=== PATIENT | female | born 1990 | race Hispanic/Latino ===

== ENCOUNTER 2017-09-13 16:52 | Inpatient (IN) | payer BC ==
[2017-09-13 17:18] VITALS: BMI 33.3
[2017-09-13 17:44] LABS: #Basophils 0.1 thou/uL (0.0-0.2); #Eosinphils 0.4 thou/uL (0.0-0.7); #Lymphocytes 2.4 thou/uL (1.20-3.40); #Monocytes 0.5 thou/uL (0.11-0.59); #Neutrophils 5.5 thou/uL (1.40-6.50); %Basophils 0.9 % (0.0-1.0); %Eosinophils 4.1 % (0.0-10.0); %Lymphocytes 27.2 % (21.0-51.0); %Monocytes 5.9 % (0.0-10.0); %Neutrophils 61.9 % (42.0-75.0); Hemoglobin 14.5 g/dL (12.0-16.0); Mean Corpuscular HGB CONC 33.4 g/dL (32.0-36.0); Mean Corpuscular Hemoglobin 30.6 pg (27.0-31.0); Mean Corpuscular Volume 91.7 fl (81.0-99.0); Mean Platelet Volume 7.6 fL (7.4-10.4); Platelet Count 305 thou/uL (130-400); RBC Distribution Width 11.9 % (11.5-14.5); Red Blood Cell (RBC) Count 4.72 mill/uL (4.20-5.40); White Blood Cell (WBC) Count 8.8 thou/uL (4.8-10.8)
[2017-09-13] MEDS ORDERED: Sodium Chloride 0.9% 1,000 ML IV SCH (17:45)
[2017-09-13] MEDS: Sodium Chloride 0.9% 1,000 ML IV SCH (17:50)
[2017-09-13 17:52] LABS: Prothrombin Time 13.1 SEC (12.0-14.7)
[2017-09-13 18:38] LABS: ALT (SGPT) 383 U/L (8-55); AST (SGOT) 195 U/L (5-34); Albumin 4.6 g/dL (3.5-5.0); Alkaline Phosphatase 457 U/L (40-150); Anion Gap 14 mmol/L (10-20); BUN (Urea Nitrogen) 16 mg/dL (7.0-18.7); Bilirubin, Total 1.3 mg/dL (0.2-1.2); Calc. Creatinine Clearance 147 mL/min (70-130); Calcium 9.6 mg/dL (7.8-10.44); Carbon Dioxide 24 mmol/L (22-29); Chloride 106 mmol/L (98-107); Estimated GFR-MDRD Greater than 90; Globulin 3.6 g/dL (2.4-3.5); Glucose 93 mg/dL (70-105); Lipase 36 U/L (8-78); Potassium 3.8 mmol/L (3.5-5.1); Protein, Total 8.2 g/dL (6.0-8.3); Sodium 140 mmol/L (136-145)
[2017-09-13] MEDS: Ondansetron HCl/PF 4 MG/2 ML Vial IVP PRN (18:38)
--- NOTE | 2017-09-13 19:29 | PDOC.FPRHP ---
- History of Present Illness Chief Complaint: Epigastric pain History of Present Illness: 26 yo obese female presents with a 2 wk history of abdominal pain, reflux, and persistent nausea and vomiting. Patient reports she was initially evaluated at an urgent care 2 wks ago for what she thought was acid reflux. She was prescribed OTC medication which did not improve symptoms. Patient's switched to PPI, but still had persistently severe symptoms. She was tired of hurting so she found Dr. Scruggs, Director Business Systems, on the internet. She made an appointment with him on Sunday. At that time it was still presumed to be related to reflux, so the PPI dose was increased and labs were ordered. Labs were noted to be abnormal, so she was sent by Dr. Scruggs to have RUQ ultrasound which was positive for choledocholethiasis. Therefore, she was directly admitted to hospital for treatment and ERCP to be done by Dr. Scruggs in the AM. Patient states she has lost approximately 18 lbs over the last 2 wks. Overall symptoms include nausea, vomiting, reflux, and abdominal pain. Pain 10/10 and located primarily in the epigastric region. Pain is nonradiating. She is not able to really even tolerate clear liquids. Nothing has improved or been able to treat symptoms. Patient reports she is a full code. ED Course: Patient was directly admitted. No ER course for this admission. - Allergies/Adverse Reactions Allergies Allergy/AdvReac Type Severity Reaction Status Date / Time sulfamethoxazole Allergy Mild Rash Verified 12/23/12 11:11 [From Bactrim] trimethoprim [From Bactrim] Allergy Mild Rash Verified 12/23/12 11:11 - Home Medications Medication Instructions Recorded Confirmed Type Ondansetron [Zofran ODT] 4 mg PO Q4HR PRN 09/13/17 09/13/17 History Pantoprazole Sodium [Protonix] 20 mg PO DAILY 09/13/17 09/13/17 History - History PMHx: GERD, hx of A2GDM PSHx: Essure (06/2017) FHx: Mother: Vertigo. Father: HTN, DM. Son: Heart murmur Social: . 2 children. Employeed at [employer]. No tobacco, alcohol, and drug use. - Review of Systems General: reports: weight/appetite/sleep changes (Decreased appetite. Weight loss approximately 18 pounds per patient over last 2 weeks). denies: fever/ chills, night sweats, fatigue ENT: denies: nasal congestion, rhinorrhea Respiratory: denies: cough, congestion, shortness of breath Cardiovascular: denies: chest pain, palpitation, edema Gastrointestinal: reports: nausea, vomiting (After eating and drinking), abdominal pain (Mid abdominal region). denies: diarrhea, constipation Genitourinary: denies: incontinence, dysuria, polyuria Skin: denies: rashes, lesions, jaundice, itching Musculoskeletal: denies: pain, stiffness Neurological: denies: syncope, weakness - Vital signs BP: 121/70 HR: 65 RR: 18 Tmax: 98.6 Pox: 98% on RA Wt: 82.6 kg - Physical Exam Constitutional: NAD, awake, alert and oriented, well developed HEENT: normocephalic and atraumatic, EOMI Neck: supple Heart: RRR, no murmurs/rubs/gallops, pulses present Lungs: CTAB, no respiratory distress, no wheezing Abdomen: soft, bowel sounds present -Abdomen: Mildly tender to palpation in epigastric region Musculoskeletal: normal structure Neurological: no focal deficit Skin: no rash/lesions, capillary refill <2 seconds Heme/Lymphatic: no purpura, no petechia Psychiatric: normal mood and affect, good judgment and insight FMR H&P: Results - Labs Result Diagrams: 09/13/17 17:35 09/13/17 17:35 Lab results: WBC 8.8 thou/uL (4.8-10.8) 09/13/17 17:35 Hgb 14.5 g/dL (12.0-16.0) 09/13/17 17:35 Hct 43.3 % (36.0-47.0) 09/13/17 17:35 MCV 91.7 fl (81.0-99.0) 09/13/17 17:35 Plt Count 305 thou/uL (130-400) 09/13/17 17:35 Neutrophils % 61.9 % (42.0-75.0) 09/13/17 17:35 Sodium 140 mmol/L (136-145) 09/13/17 17:35 Potassium 3.8 mmol/L (3.5-5.1) 09/13/17 17:35 Chloride 106 mmol/L (98-107) 09/13/17 17:35 Carbon Dioxide 24 mmol/L (22-29) 09/13/17 17:35 BUN 16 mg/dL (7.0-18.7) 09/13/17 17:35 Creatinine 0.75 mg/dL (0.6-1.1) 09/13/17 17:35 Glucose 93 mg/dL (70-105) 09/13/17 17:35 Calcium 9.6 mg/dL (7.8-10.44) 09/13/17 17:35 Total Bilirubin 1.3 mg/dL (0.2-1.2) H 09/13/17 17:35 AST 195 U/L (5-34) H 09/13/17 17:35 ALT 383 U/L (8-55) H 09/13/17 17:35 Alkaline Phosphatase 457 U/L (40-150) H 09/13/17 17:35 Serum Total Protein 8.2 g/dL (6.0-8.3) 09/13/17 17:35 Albumin 4.6 g/dL (3.5-5.0) 09/13/17 17:35 Lipase 36 U/L (8-78) 09/13/17 17:35 Additional comment: RUQ u/s: cholelithiasis with dilated CBD FMR H&P: A/P - Problem List (1) Choledocholithiasis Current Visit: Yes Status: Acute Code(s): K80.50 - CALCULUS OF BILE DUCT W/ O CHOLANGITIS OR CHOLECYST W/O OBST - Plan 1. Acute Choledocholithiasis - Patient admitted to medical floor - Plan for ERCP by Dr. Scruggs tomorrow - Patient made NPO at midnight; clears until that time - AST 195, ALT 383, AP 457, Tbili 1.3; will trend - IVF @ 125 ml/hr - Zofran for nausea - Morphine for pain control - AM CMP - Coag studies wnl, CBC wnl - Afebrile, VSS - No indication for antibiotics at this time 2. Obesity - [employer] on diet and exercise - BMI 33.3 3. Hx of A2GDM - Monitor BG while inpatient; patient never evaluated for DM after - BG on admission 93 FMR H&P: Upper Level - Plan Date/Time: 09/13/171922 I, Rex Braga MD, have evaluated this patient and agree with findings/plan as outlined by product managent intern resident. Pertinent changes/additions are listed here. 26 yo female pmhx of obesity and insulin resistance presents with a 2 wk history of 10/10, non-radiating, burning, epigastric pain and persistent nausea and vomiting. Associated with 18 lb weight loss over that time period. Unable to tolerate anything by mouth including clear liquids. Reports initially being treated for GERD by [facility] without relief of symptoms. Pt made appt with Dr. Scruggs who initially increased her PPI but then her labs came back abnl. RUQ ultrasound was positive for choledocholethiasis, and pt was subsequently direct admitted for treatment with plan for ERCP to be done tmrw AM by Dr. Scruggs. PE: Gen: obese female, NAD, AAOx3, appeared hydrated CV: RRR, no m/g/r Lungs: CTAB, non-labored GI: soft, non-tender, no guarding, rebound, or rigidity Ext: no c/c/e A/P: 1) Acute choledocholithiasis: direct admit to medical; clear liquids until midnight then NPO with plan for ERCP with GI in AM. Pt afebrile, VSS, abx not indicated at this time. Elevated liver enzymes, will trend. Continue maintenance IVF. Prn morphine for pain relief. 2) Obesity: recommend lifestyle changes 3) H/o gDM: will monitor glucoses while inpt Attending Addendum - Attending Addendum Date/Time: 09/13/171937 I personally evaluated the patient and discussed the management with Dr. Young and Dr. Braga I agree with the History, Examination, Assessment and Plan documented above with any addition or exceptions noted below. 26 yo healthy female with history of A2 GDM with previous pregnancies and BMI of 33 admitted to hospital for choledocholethiasis. Patient has been seen and evaluated by Dr. Scruggs. Plans to perform ERCP in AM. Patient reports symptoms over the past 2 wks. Labs consistent with disease state. Denies fever/chills. VS reviewed. Labs reviewed. Imaging reviewed. Exam benign at present. A/P: Admit. IVFs. Pain meds and antiemetics. NPO. ERCP in AM. Trend labs. Monitor vitals. Ramoniat
[2017-09-13] MEDS ORDERED: Promethazine HCl 25 MG/ML VIAL IM SCH (21:45)
[2017-09-14] MEDS: Sodium Chloride 0.9% 1,000 ML IV SCH ×4 (03:22→21:56)
[2017-09-14 05:56] LABS: ALT (SGPT) 305 U/L (8-55); AST (SGOT) 97 U/L (5-34); Albumin 4.4 g/dL (3.5-5.0); Alkaline Phosphatase 384 U/L (40-150); Anion Gap 13 mmol/L (10-20); BUN (Urea Nitrogen) 8 mg/dL (7.0-18.7); Bilirubin, Total 0.6 mg/dL (0.2-1.2); Calc. Creatinine Clearance 167 mL/min (70-130); Calcium 8.8 mg/dL (7.8-10.44); Carbon Dioxide 20 mmol/L (22-29); Chloride 105 mmol/L (98-107); Estimated GFR-MDRD Greater than 90; Globulin 3.6 g/dL (2.4-3.5); Glucose 128 mg/dL (70-105); Sodium 134 mmol/L (136-145)
[2017-09-14] MEDS: Ondansetron HCl/PF 4 MG/2 ML Vial IVP PRN ×2 (08:47→21:53)
[2017-09-14] MEDS ORDERED: Promethazine HCl 25 MG/ML VIAL IM/IV PRN (09:09)
--- NOTE | 2017-09-14 09:13 | PDOC.FM ---
- Subjective Subjective: Complaining of abdominal pain, n/v this am. Says she had multiple episodes of vomitus last night that was dark green. - Objective MAR Reviewed: Yes Vital Signs & Weight: Vital Signs (12 hours) Temp Pulse Resp BP Pulse Ox 09/14/17 08:00 98.6 F 68 16 135/78 99 09/14/17 04:00 98.2 F 78 16 132/86 98 09/14/17 00:00 98.9 F 69 16 138/84 98 Weight Weight 82.667 kg I&O: 09/13/17 09/14/17 09/15/17 06:59 06:59 06:59 Intake Total 1740 Output Total 500 Balance 1240 Result Diagrams: 09/13/17 17:35 09/14/17 04:19 <Lindsay Gamboa - Last Filed: 09/14/17 11:35> - Objective Vital Signs & Weight: Vital Signs (12 hours) Temp Pulse Resp BP Pulse Ox 09/14/17 11:53 98.7 F 66 16 110/68 96 Weight Admit Weight 82.667 kg Weight 82.667 kg I&O: 09/13/17 09/14/17 09/15/17 06:59 06:59 06:59 Intake Total 1740 Output Total 500 Balance 1240 Result Diagrams: 09/13/17 17:35 09/14/17 04:19 <Estrella Morton - Last Filed: 09/14/17 20:18> Phys Exam - Physical Examination Constitutional: NAD HEENT: PERRLA, moist MMs Respiratory: no wheezing, no rales, clear to auscultation bilateral Cardiovascular: RRR, no significant murmur Gastrointestinal: soft tender to palpation; hypoactive bowel sounds Neurological: non-focal Psychiatric: normal affect, A&O x 3 Skin: no rash <Lindsay Gamboa - Last Filed: 09/14/17 11:35> Dx/Plan (1) Choledocholithiasis Code(s): K80.50 - CALCULUS OF BILE DUCT W/O CHOLANGITIS OR CHOLECYST W/O OBST Status: Acute (2) Obesity Code(s): E66.9 - OBESITY, UNSPECIFIED Status: Acute - Plan Plan: 26 yo f with abdominal pain, n/v, direct admit from Dr. Scruggs's clinic for choledocolithiasis. 1.)Choledocolithiasis- -Pt was made NPO at midnight with plan for ERCP this am with Dr. Scruggs (GI). -Morphine for pain control -Phenergan for nausea -Gen Surg counciled, will follow up with recs 2.)Obesity-will [place] on diet and exercise. <Lindsay Gamboa - Last Filed: 09/14/17 11:35> Attending Addendum - Attending Addendum Date/Time: 09/14/17 [id number] I personally evaluated the patient and discussed the management with Dr. Gamboa. I agree with the History, Examination, Assessment and Plan documented above with any addition or exceptions noted below. The patient goes for ERCP today and likely a cholecystectomy. Monitor pain control. <Estrella Morton - Last Filed: 09/14/17 20:18>
[2017-09-14] MEDS ORDERED: Levofloxacin 500 mg/D5W 100 ml Premix Bag ONE (13:00)
[2017-09-14] MEDS ORDERED: Ketorolac Tromethamine 30 MG/ML VIAL ONE (13:00)
[2017-09-14] MEDS ORDERED: Scopolamine 1.5 mg/72 hour Patch ONE (13:30)
--- NOTE | 2017-09-14 14:32 | HP ---
HISTORY OF PRESENT ILLNESS: Matilde Sofia is a 26-year-old female admitted to [facility] with gallstones and suspect choledocholithiasis. Dr. Scruggs has seen her and is planning an ERCP an d has recommended ERCP and Dr. Walsh, his associate, has planned an ERCP today. They have asked me t o see her regarding her gallstones. Patient has had epigastric right upper quadrant symptoms for mor e than 2 years. She has had bloating, belching, indigestion. She had problems during her last pregn aline. She is 6 months . She over the last three weeks has been having severe epigastric r ight upper quadrant pain with nausea post-prandial. She presented to emergency room and was admitted on 09/13/2017. On admission, her white count was 8, hemoglobin 14, bilirubin 0.6, AST and ALT 97 an d 305 respectively, alkaline phosphatase 384, lipase is normal. Ultrasound 09/13/2017 revealing dila freida common bile duct of 12 mm and cholelithiasis, negative sonographic Mcmillan's sign. ALLERGIES: Listed as SULFA, although she says none. TOBACCO: None. ALCOHOL: None. MEDICATIONS, PAST SURGICAL, MEDICAL HISTORY: Noncontributory. SOCIAL HISTORY: Patient is , two children, 2, para 2 six months most recen tly and she works at [employer] in [employer]. She does do some lifting in her job. She lives in [place]. REVIEW OF SYSTEMS: [place] noncontributory. PHYSICAL EXAMINATION: VITAL SIGNS: 98.7, 66, 16, 110/68, 5 foot 2, 33 BMI, 182 pounds. HEENT: Unremarkable. Sclerae are not icteric. LUNGS: Clear to auscultation. CARDIAC: Regular rate and rhythm without murmur or gallop. ABDOMEN: Soft. Minimal tenderness epigastric, right upper quadrant, no guarding or rebound. EXTREMITIES: Unremarkable. No ankle edema. SKIN: Nonjaundiced axilla and neck. Groins without lymphadenopathy. NEUROLOGIC: Intact. No focal deficits. ASSESSMENT AND PLAN: Cholelithiasis. They recommend laparoscopic video cholecystectomy after ERCP b y Gastroenterology. Risks of infection, bleeding, visceral and biliary injury discussed and she cons ents. Questions answered.
[2017-09-14] MEDS ORDERED: diphenhydrAMINE 50 MG/ML VIAL ONE (15:09)
[2017-09-14] MEDS ORDERED: Succinylcholine Chloride 20 MG/ML 10 ml SYRINGE FS ONE (15:09)
[2017-09-14] MEDS ORDERED: PROPOFOL 200 MG/20 ML VIAL ONE (15:09)
[2017-09-14] MEDS ORDERED: Ondansetron HCl/PF 4 MG/2 ML Vial ONE (15:09)
[2017-09-14] MEDS ORDERED: Dexamethasone 20 MG/5 ML VIAL ONE (15:09)
[2017-09-14] MEDS ORDERED: Lidocaine 1% PF 5 ML VIAL ONE (15:09)
[2017-09-14] MEDS ORDERED: Glycopyrrolate 0.2 MG/ML 5 ML SYRINGE ONE (15:10)
[2017-09-14] MEDS ORDERED: Iothalamate Meglumine 60% 50 ML VIAL FS ONE (15:35)
[2017-09-14] MEDS ORDERED: Indomethacin 50 MG SUPP ONE (15:39)
[2017-09-14] MEDS ORDERED: Fentanyl 100 MCG/2 ML VIAL ONE ×2 (15:41→18:38)
[2017-09-14] MEDS ORDERED: Indomethacin 50 MG SUPP PR SCH (16:00)
[2017-09-14] MEDS ORDERED: Lidocaine 1% w/Epinephrine 1:100K 30 ML VIAL ONE (16:55)
[2017-09-14] MEDS ORDERED: Bupivacaine 0.5% 10 ML VIAL ONE (16:55)
--- NOTE | 2017-09-14 18:17 | RAD ---
ERCP: 09/14/17 Three fluoroscopic images obtained from ERCP procedure. INDICATIONS: Intraoperative imaging during ERCP procedure. FINDINGS/IMPRESSION: Initial image show opacification of the common duct. There is a rounded filling defect in the mid com mon duct seen on this image. Second image shows a small filling effect seen in the distal common duct. This filling defect is not definitely seen on the third image. POS: BLESSING
[2017-09-14] MEDS ORDERED: Ondansetron ODT 8 MG TAB PO PRN (18:38)
[2017-09-14] MEDS ORDERED: traMADol HCl 50 MG TAB PO PRN ×2 (18:38)
[2017-09-14] MEDS ORDERED: Ondansetron ORAL SOLN. 4 MG/5 ML UDCUP PO PRN ×2 (18:38)
[2017-09-14] MEDS ORDERED: Ibuprofen 600 MG TAB PO PRN (18:38)
[2017-09-14] MEDS ORDERED: Acetaminophen 500 MG TAB PO PRN (18:38)
[2017-09-14] MEDS ORDERED: Meperidine HCl/PF 25 MG/ML VIAL SLOW IVP PRN (18:43)
[2017-09-14] MEDS ORDERED: Morphine Sulfate 2 MG/ML SYRINGE SLOW IVP PRN (18:43)
[2017-09-14] MEDS ORDERED: Promethazine HCl 25 MG/ML VIAL IM PRN (18:43)
[2017-09-14] MEDS ORDERED: Ondansetron ODT 4 MG TAB PO PRN (18:43)
[2017-09-14] MEDS ORDERED: Promethazine HCl 25 MG/ML VIAL SLOW IVP PRN (18:43)
[2017-09-14] MEDS ORDERED: Scopolamine 1.5 mg/72 hour Patch TD SCH (18:45)
--- NOTE | 2017-09-14 18:59 | CON ---
DATE OF CONSULTATION: 09/14/2017 REASON FOR CONSULTATION: Choledocholithiasis. CONSULTING PHYSICIAN: Lindsay Gamboa M.D. HISTORY OF PRESENT ILLNESS: The patient is a 26-year-old female with past medical history of obesity and gestational diabetes presenting with complaint of recurrent right upper quadrant abdominal pain. She states that she was in her usual state of health until approximately 3 weeks ago when she began having increasing right upper quadrant abdominal pain characterized as sharp/stabbing in nature with severity of approximately 5-6/10 with no clear alleviating or exacerbating factors. However 3 weeks ago, she has spontaneous resolution of her pain after a period of approximately 12-24 hours. Howeve r, approximately 4-5 days ago, she had recurrence of her midepigastric abdominal pain associated with increased abdominal bloating, belching and substernal pyrosis with worsening of her abdominal pain t hat prompted her to seek health care attention, when she presented to the emergency room, she was not ed to have significantly elevated AST and ALT and a right upper quadrant ultrasound consistent with c holedocholithiasis. Of note, she was seen in the GI clinic on Sunday of this week with these labs in the right upper quadrant ultrasound ordered at that time, which then prompted her to come to the ER after review of those results. REVIEW OF SYSTEMS: A 10 category review of systems was obtained with all responses negative except f or the pertinent positives as listed in the HPI. PAST MEDICAL HISTORY: As above. PAST SURGICAL HISTORY: None. FAMILY HISTORY: Uterine cancer (aunt), liver failure (father). SOCIAL HISTORY: Denies any tobacco, alcohol or illicit drug use. ALLERGIES: SULFA. PHYSICAL EXAMINATION: VITAL SIGNS: Temperature 98.7, pulse 66, blood pressure 110/68, respiratory rate 16, satting 96% on room air. GENERAL: The patient is lying in bed in no acute distress. Alert and oriented x4. NECK: Supple. No JVD noted. CARDIOVASCULAR: Regular rate and rhythm with no discernible murmurs, gallops or rubs. RESPIRATORY: Clear to auscultation bilaterally with no discernible wheezes or rales. ABDOMEN: Normoactive bowel sounds, soft, nondistended. Tenderness to palpation in the midepigastric and right upper quadrant regions. EXTREMITIES: No cyanosis, clubbing or edema. LABORATORY DATA: CBC with a white blood cell count of 8.8, hemoglobin of 14.5, hematocrit 43.3, plat elets 305. Chemistry with sodium 134, potassium 4, chloride 105, CO2 of 20, BUN 8, creatinine 0.66, glucose 128, AST 97, ALT 305, alkaline phosphatase 384, total bilirubin 0.6. IMAGING DATA: Right upper quadrant ultrasound obtained this week showing choledocholithiasis. ASSESSMENT AND PLAN: The patient is a 26-year-old female with past medical history of obesity and ge stational diabetes presenting with choledocholithiasis. Choledocholithiasis. The patient is presenting with recurrence of right upper quadrant/midepigastric abdominal pain that did occur 3 weeks ago with spontaneous resolution, but now with worsening charac ter over the last week. She was evaluated as an outpatient in the GI clinic with routine labs and [facility] upper quadrant ultrasound ordered at that time showing elevated LFTs and dilation of the common b ile duct and choledocholithiasis, respectively. She was instructed to proceed to the hospital, where she was admitted for choledocholithiasis at this time given her LFT pattern, it is consistent with a n obstructive type pattern and with imaging. She will need ERCP for stone extraction. RECOMMENDATIONS: 1. Please keep the patient n.p.o. with planned procedure for ERCP later on today. 2. Pain control per primary team. 3. Given review of her labs and lack of findings consistent with ascending cholangitis. Antibiotic administration is not necessarily indicated at this time. 4. We will plan for ERCP later on today with stone extraction.
--- NOTE | 2017-09-14 19:02 | OP ---
DATE OF PROCEDURE: 09/14/2017 PROCEDURE PERFORMED: Endoscopic retrograde cholangiopancreatography with sphincterotomy and stone extraction. DIRECTOR OF ESTATE PHYSICIAN: Dr. Dony Scruggs INDICATION FOR PROCEDURE: Choledocholithiasis, abnormal liver function tests. DESCRIPTION OF PROCEDURE: After the risks and benefits of the procedure including risks of infection, bleeding, perforation, reaction to anesthesia and/ or pain were explained to the patient. Informed consent was obtained. The patient was then taken to the endoscopy suite where general anesthesia was administered via anesthesia support. The standard duodenoscope was then introduced into the mouth and advanced into the proximal small intestine with the findings listed below. The patient tolerated the procedure well with no immediate perioperative complications. A 100 mg of rectal indomethacin was delivered prior to the procedure for prophylaxis against post-ERCP pancreatitis. FINDINGS: Mucosal findings: The limited views of the esophagus, stomach and small intestine were obtained. There were no discernible erosions, ulcerations , or mass lesions within the esophagus, stomach or proximal small intestine. The duodenoscope was advanced into the proximal small intestine with identification of the ampulla. Using a sphincterotome and guidewire, the ampulla was then cannulated with advancement of the wire into the biliary tree. Once the guidewire was in place, the sphincterotome was advanced with a cholangiogram, taking of the biliary tree showing a single stone within the distal common bile duct. Then, using the sphincterotome, a generous sphincterotomy was performed with minimal bleeding after it was performed. The sphincterotome was then exchanged over the guidewire for a 1.2 cm biliary balloon which was then advanced over the guidewire and into the biliary tree. Using occlusion cholangiogram, the stone was identified with the balloon then advanced past the stone, subsequent inflation of the balloon and sweep to the common bile duct made with successful extraction of a 5-6 mm greenish/speckled brown gallstone. Contrast and bile was then noted to be flowing freely from the sphincterotomy after the extraction of the gallstone. An additional balloon sweep was then performed that was negative for any additional sludge or stones. At which point, all equipment was removed from the patient and the procedure was terminated. On withdrawal through the stomach, there was noted some increased erythema and some blood clots within the greater curvature of the stomach consistent with scope trauma. IMPRESSION: Successful ERCP with sphincterotomy and stone extraction of a 5-6 mm gallstone. RECOMMENDATIONS: 1. Follow with the primary inpatient team. 2. General Surgery has already been consulted for cholecystectomy to be performed during this hospitalization. 3. Pain control per primary team. 4. Antibiotic administration would be deferred to the General Surgery Service in the post cholecystectomy. 5. We will continue to monitor clinically for signs of post-ERCP pancreatitis. GAVIN
--- NOTE | 2017-09-14 19:02 | OP ---
PREOPERATIVE DIAGNOSES: Chronic cholecystitis, cholelithiasis, choledocholithiasis. POSTOPERATIVE DIAGNOSES: Chronic cholecystitis, cholelithiasis, choledocholithiasis. PROCEDURE: Dr. Eduard Walsh, first performed ERCP, sphincterotomy, stone extraction, and under the [place] anesthesia, I performed laparoscopic video cholecystectomy. SURGEON: Dr. Misael Garcia ANESTHESIA: General. Local 0.5% Marcaine 30 mL mixed with 1% Xylocaine with epinephrine 20 mL. PROCEDURE IN DETAIL: Patient taken to the operating room where under general anesthesia after ERCP a nd sphincterotomy, stone extraction by Dr. Eduard Walsh. Her abdomen was prepared with chloraprep, d raped in routine fashion in supine position. Local anesthetic infiltrated into skin and subcutaneous tissue about the operative sites. Trocar catheter introduced infraclavicular and video laparoscope inserted. Right subcostal incision made mid clavicular anterior axillary lines and 5 ports placed. Right subxiphoid incision made and 11 port placed. Liver appeared to be normal. Fundus of gallbladd er grasped and reflected cephalad. Infundibulum grasped and reflected laterally. Cystic artery and duct dissected free. Critical view obtained. Cystic artery and duct doubly clipped and dividing and gallbladder dissected free from the liver bed obtaining good hemostasis prior to division of final p eritoneal attachments. Gallbladder and contents removed and submitted to Pathology. Good hemostasis ensured with the cautery. Irrigant and pneumoperitoneum evacuated. All instruments removed and all skin incisions approximated with interrupted subdermal 4-0 Monocryl and DermaGlue applied.
[2017-09-15] MEDS ORDERED: Promethazine HCl 12.5 MG in Sodium Chloride 0.9% 50 ML IVPB SCH (00:30)
[2017-09-15] MEDS ORDERED: Promethazine HCl 25 MG/ML VIAL IM SCH (00:30)
[2017-09-15 06:03] LABS: #Lymphocytes 2.8 thou/uL (1.20-3.40); #Monocytes 0.8 thou/uL (0.11-0.59); #Neutrophils 6.9 thou/uL (1.40-6.50); %Basophils 0.2 % (0.0-1.0); %Eosinophils 0.2 % (0.0-10.0); %Lymphocytes 26.9 % (21.0-51.0); %Monocytes 7.1 % (0.0-10.0); %Neutrophils 65.6 % (42.0-75.0); Hemoglobin 12.1 g/dL (12.0-16.0); Mean Corpuscular HGB CONC 33.2 g/dL (32.0-36.0); Mean Corpuscular Hemoglobin 30.1 pg (27.0-31.0); Mean Corpuscular Volume 90.8 fl (81.0-99.0); Mean Platelet Volume 7.7 fL (7.4-10.4); Platelet Count 272 thou/uL (130-400); RBC Distribution Width 11.8 % (11.5-14.5); Red Blood Cell (RBC) Count 4.03 mill/uL (4.20-5.40); White Blood Cell (WBC) Count 10.5 thou/uL (4.8-10.8)
[2017-09-15 06:21] LABS: ALT (SGPT) 186 U/L (8-55); AST (SGOT) 71 U/L (5-34); Albumin 3.7 g/dL (3.5-5.0); Alkaline Phosphatase 275 U/L (40-150); Bilirubin, Direct 0.3 mg/dL (0.1-0.3); Bilirubin, Total 0.6 mg/dL (0.2-1.2); Protein, Total 6.4 g/dL (6.0-8.3)
[2017-09-15] MEDS: Sodium Chloride 0.9% 1,000 ML IV SCH (06:24)
--- NOTE | 2017-09-15 06:41 | PDOC.FM ---
- Subjective Subjective: No acute events overnight. Pain controlled. - Objective Vital Signs & Weight: Vital Signs (12 hours) Temp Pulse Resp BP BP Pulse Ox 09/15/17 04:18 98.8 F 60 20 102/63 96 09/15/17 00:00 98.7 F 75 20 128/85 98 09/14/17 22:03 97.8 F 61 18 126/82 96 09/14/17 21:08 63 124/84 98 09/14/17 20:09 66 18 139/89 97 09/14/17 20:00 98.7 F 66 16 09/14/17 19:00 97.8 F 62 20 124/84 99 Weight Admit Weight 82.667 kg Weight 82.667 kg I&O: 09/13/17 09/14/17 09/15/17 06:59 06:59 06:59 Intake Total 1740 Output Total 500 Balance 1240 Result Diagrams: 09/15/17 05:33 09/14/17 04:19 <Lindsay Gamboa - Last Filed: 09/15/17 06:38> - Objective Vital Signs & Weight: Vital Signs (12 hours) Temp Pulse Resp BP BP Pulse Ox 09/15/17 08:00 98.4 F 53 L 16 105/65 96 09/15/17 04:18 98.8 F 60 20 102/63 96 09/15/17 00:00 98.7 F 75 20 128/85 98 Weight Admit Weight 82.667 kg Weight 82.667 kg I&O: 09/14/17 09/15/17 09/16/17 06:59 06:59 06:59 Intake Total 1740 Output Total 500 Balance 1240 Result Diagrams: 09/15/17 05:33 09/14/17 04:19 <Estrella Morton - Last Filed: 09/15/17 11:04> Dx/Plan (1) Choledocholithiasis Code(s): K80.50 - CALCULUS OF BILE DUCT W/O CHOLANGITIS OR CHOLECYST W/O OBST Status: Acute (2) Obesity Code(s): E66.9 - OBESITY, UNSPECIFIED Status: Acute (3) S/P laparoscopic cholecystectomy Code(s): Z90.49 - ACQUIRED ABSENCE OF OTHER SPECIFIED PARTS OF DIGESTIVE TRACT Status: Acute (4) S/P ERCP Code(s): Z98.890 - OTHER SPECIFIED POSTPROCEDURAL STATES Status: Acute (5) Cholecystitis Code(s): K81.9 - CHOLECYSTITIS, UNSPECIFIED Status: Acute - Plan Plan: 26 yo f with abdominal pain, n/v, direct admit from Dr. Scruggs's clinic for choledocolithiasis, cholelithiasis, and cholicystitis. 1. Cholecystitis s/p ERCP and lap cori 09/14 -Pt s/p ERCP with extraction of one stone and s/p lap cori -tramadol for pain control -Phenergan for nausea -Gen Surg and GI consulted; will continue to follow their recommendations 2. Choledocolithiasis- see above 3. Cholelithiasis-see above 4. Obesity-will [place] on diet and exercise. <Lindsay Gamboa - Last Filed: 09/15/17 06:38> Attending Addendum - Attending Addendum Date/Time: 09/15/17 1103 I personally evaluated the patient and discussed the management with Dr. Gamboa. I agree with the History, Examination, Assessment and Plan documented above with any addition or exceptions noted below. The patient is feeling better after lap cori. Will see if patient tolerates food at lunch and likely discharge home. <Estrella Morton - Last Filed: 09/15/17 11:04>
[2017-09-15] MEDS ORDERED: Polyethylene Glycol 3350 17 GM Packet PO SCH (09:00)
[2017-09-15 11:52] VITALS: BP 107/70; TEMP 98.5
--- NOTE | 2017-09-15 15:56 | PRG ---
DATE OF SERVICE: 09/15/2017 SUBJECTIVE: Ms. Matilde Sofia is doing well today. She underwent ERCP, sphincterotomy, stone ext raction and laparoscopic cholecystectomy yesterday. She is tolerating a regular diet. She is saline locked. OBJECTIVE: VITAL SIGNS: Temperature is 98.5 degrees, pulse 56 and blood pressure 107/70. LUNGS: Clear to auscultation. CARDIAC: Regular rate and rhythm without murmur or gallop. ABDOMEN: Soft and nontender. Surgical wounds look good. LABORATORY DATA: This morning, her white count is 10, hemoglobin 12. Her bilirubin is normal at 0.6 . Her AST and ALT are markedly improved to 97 and 1186 respectively. Alkaline phosphatase is down t o 275. Overall, the patient is doing well. ASSESSMENT AND PLAN: At this point, the patient can be discharged home. She will follow up [place] in 1-2 weeks. Diet and activity as tolerated. No lifting restrictions.
== END 2017-09-15 17:08 | disposition home or self-care (01) | DRG 419 ==
LOC: T4-A 16:52 → T4-B 17:09
PROVIDERS: ADMIT Family Medicine; ATTEND Family Medicine
PROC: 0FT44ZZ Resection of Gallbladder, Percutaneous Endoscopic Approach (ICD-10-PCS; principal; 2017-09-14)
PROC: 0FC98ZZ Extirpation of Matter from Common Bile Duct, Via Natural or Artificial Opening Endoscopic (ICD-10-PCS; 2017-09-14)
PROC: BF100ZZ Fluoroscopy of Bile Ducts using High Osmolar Contrast (ICD-10-PCS; 2017-09-14)
DX: K80.66 Calculus of gallbladder and bile duct with acute and chronic cholecystitis without obstruction (principal); E66.9 Obesity, unspecified; Z68.33 Body mass index [BMI] 33.0-33.9, adult
CPT/HCPCS: 36415; 74330; 76705; 80053; 80076; 82150; 83690; 85025; 87040; 88304; A4216; J0131; J1100; J1200; J1610; J1885; J1956; J2001; J2270; J2405; J2550; J2704; J3010; J3490; J7050; Q9961

== ENCOUNTER 2018-06-25 13:14 | Outpatient (CLI) | payer BC ==
[2018-06-25] MEDS ORDERED: ISOVUE-370 76%-LOCM 1 ML ONE (13:41)
--- NOTE | 2018-06-25 14:56 | CT ---
CONTRAST ENHANCED CT IMAGES SOFT TISSUE NECK: HISTORY: A patient with right-sided neck mass. FINDINGS: Contrast-enhanced CT images of the soft tissue neck are obtained and demonstrate a heterogeneously en hancing mass measuring 3.2 x 2.3 x 3.1 cm posterior to the right submandibular gland and medial and i nferior to the right parotid gland. This lesion appears to be in the anterior aspect of the right ca rotid space. Differential diagnosis for this includes a possible heterogeneously enhancing lymph nod e from previous infection versus malignancy. There are associated smaller level 3, 4, and 5A and 5B right-sided lymph nodes. No other soft tissue neck masses or lesions seen. IMPRESSION: Right-sided lymphadenopathy with heterogeneously enhancing right level 2 lymph node. The lesion is p osterior to the right submandibular gland medial to the right parotid gland and anterior to the right sternocleidomastoid muscle. POS: KARLI
== END 2018-06-25 13:15 | disposition home or self-care (01) ==
LOC: BICCT 13:14
PROVIDERS: ATTEND Otolaryngology Plastic Surgery within the Head & Neck
DX: R22.1 Localized swelling, mass and lump, neck (principal); R59.1 Generalized enlarged lymph nodes; K11.8 Other diseases of salivary glands
CPT/HCPCS: 70491

== ENCOUNTER 2019-06-18 06:32 | Outpatient (CLI) | payer BC ==
--- NOTE | 2019-06-18 07:34 | ULT ---
Pelvic sonogram transabdominal and transvaginal imaging with duplex evaluation HISTORY: Pelvic pain and bleeding. FINDINGS: Urinary bladder has a normal appearance. Uterus has a heterogeneous echotexture and measure s up to 9.4 cm. Endometrium is 1.1 cm thickness. Echogenic bars at each cornua are consistent with inserted contraceptive device. No free fluid. Small nabothian cysts of the cervix. Right ovary is 3.4 cm length and left is 2.8 cm. Each has a normal sonographic appearance with good c olor and spectral Doppler flow. IMPRESSION: Essure contraceptive device at the base of each fallopian tube. No significant abnormalit ies are demonstrated.
== END 2019-06-18 06:33 | disposition home or self-care (01) ==
LOC: BICULT 06:32
PROVIDERS: ATTEND Student in an Organized Health Care Education/Training Program
DX: R10.2 Pelvic and perineal pain (principal); Z97.5 Presence of (intrauterine) contraceptive device
CPT/HCPCS: 76856

== ENCOUNTER 2022-03-24 02:26 | Emergency (ER) | payer BC ==
[2022-03-24] MEDS ORDERED: Acetaminophen 500 MG TAB ONE (02:36)
[2022-03-24] MEDS ORDERED: Ondansetron PF 4 MG/2 ML Vial ONE (02:54)
[2022-03-24 03:10] LABS: Bilirubin Negative (Negative); Blood, Urine Large (Negative); Glucose, Urine (Dipstick) Negative (Negative); Ketone, Urine Negative (Negative); Leukocyte Negative (Negative); Nitrite Negative (Negative); Protein, Urine (Dipstick) Negative (Neg-Trace); Urobilinogen 0.2 mg/dL (Less than 2); pH, Urine 5.5 (5.0-9.0)
[2022-03-24 03:11] LABS: Clarity Clear (Clear)
[2022-03-24 03:12] LABS: Pregnancy Test - Urine (BHCG) Negative (Negative); Pregu Control Background? CLEAR/WHITE (CLR/WHITE); Pregu Control Bar Appear? YES (CONTROL BAR); RBC/HPF 0-3 HPF (0-3); Specific Gravity 1.029 (1.002-1.036); Specific Gravity, Urine 1.029 (1.002-1.036); WBC/HPF 0-3 HPF (0-3)
[2022-03-24 03:17] LABS: #Basophils 0.1 thou/uL (0.0-0.2); #Eosinphils 0.3 thou/uL (0.0-0.7); #Lymphocytes 3.3 thou/uL (1.20-3.40); #Monocytes 0.6 thou/uL (0.11-0.59); #Neutrophils 5.6 thou/uL (1.40-6.50); %Eosinophils 2.9 % (0.0-10.0); %Lymphocytes 33.6 % (21.0-51.0); %Monocytes 5.6 % (0.0-10.0); %Neutrophils 56.9 % (42.0-75.0); Hemoglobin 13.1 g/dL (12.0-16.0); Mean Corpuscular HGB CONC 35.1 g/dL (32.0-36.0); Mean Corpuscular Hemoglobin 31.5 pg (27.0-31.0); Mean Corpuscular Volume 89.7 fL (78.0-98.0); Mean Platelet Volume 7.5 fL (7.4-10.4); Platelet Count 284 thou/uL (130-400); RBC Distribution Width 11.9 % (11.5-14.5); Red Blood Cell (RBC) Count 4.16 mill/uL (4.20-5.40); White Blood Cell (WBC) Count 9.9 thou/uL (4.8-10.8)
[2022-03-24] MEDS ORDERED: Ketorolac Tromethamine 30 MG/ML VIAL ONE (03:17)
[2022-03-24 03:41] LABS: Anion Gap 16 mmol/L (10-20); BUN (Urea Nitrogen) 16 mg/dL (7.0-18.7); Calc. Creatinine Clearance 0 mL/min (70-130); Calcium 8.9 mg/dL (7.8-10.44); Carbon Dioxide 20 mmol/L (22-29); Chloride 105 mmol/L (98-107); Estimated GFR 97; Glucose 102 mg/dL (70-105); Lipase 19 U/L (8-78); Potassium 3.8 mmol/L (3.5-5.1); Sodium 137 mmol/L (136-145)
== END 2022-03-24 05:10 | disposition home or self-care (01) ==
LOC: ERS 02:26
DX: N13.2 Hydronephrosis with renal and ureteral calculous obstruction (principal)
CPT/HCPCS: 74176; 80048; 81003; 81015; 81025; 83690; 85025; 96374; 96375; J1885; J2405